=== PATIENT | female | born 1995 | race Caucasian/White ===

== ENCOUNTER 2023-02-08 11:36 | Emergency (ER) | payer BC ==
[2023-02-08] MEDS ORDERED: Acetaminophen/HYDROcodone 325-5 MG Tab PO ONE (13:45)
[2023-02-08] MEDS ORDERED: Ondansetron 4 MG Tab.DIS PO ONE (13:46)
== END 2023-02-08 14:14 | disposition home or self-care (01) ==
LOC: JP.ED 11:36
DX: S09.90XA Unspecified injury of head, initial encounter (principal); F17.210 Nicotine dependence, cigarettes, uncomplicated; Z79.899 Other long term (current) drug therapy; Z88.1 Allergy status to other antibiotic agents; W18.30XA Fall on same level, unspecified, initial encounter; Y92.002 Bathroom of unspecified non-institutional (private) residence as the place of occurrence of the external cause
CPT/HCPCS: 99283; A9270; Q0162